=== PATIENT | female | born 1995 ===

== ENCOUNTER → 2016-08-28 | Outpatient (CLI) | payer BC, OTHER ==
--- NOTE | 2016-08-28 16:34 | DIAGNOSTIC IMAGING REPORT ---
LUMBAR SPINE 5 VIEWS HISTORY: Low back pain. COMPARISON: None. FINDINGS: There is no fracture. No subluxation. Disc spaces are preserved. 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 IMPRESSION: No fracture or subluxation within the lumbar spine. Possible right-sided L5 pars defect. Electronically signed by: Raf Devlin M.D. 08/28/2016 4:33 PM Dictated Date/Time: 08/28/2016 4:31 PM
== END | disposition home or self-care (01) ==
LOC: C.RDSM 16:51
PROVIDERS: ATTEND Family Medicine
DX: M54.5 Low back pain (principal)